=== PATIENT | female | born 2005 ===

== ENCOUNTER → 2024-06-10 | Outpatient (REF) | payer OTHER | LOC: M LAB REF 21:40 | PROVIDERS: ATTEND Physician Assistant | DX: B34.9 Viral infection, unspecified (principal) ==

== ENCOUNTER → 2024-07-06 | Outpatient (REF) | payer OTHER | LOC: M LAB REF 16:56 | PROVIDERS: ATTEND Student in an Organized Health Care Education/Training Program | DX: J06.9 Acute upper respiratory infection, unspecified (principal) ==